=== PATIENT | female | born 1985 | race American Indian/Alaskan Native ===

== ENCOUNTER 2020-06-30 14:20 | Emergency (ER) | payer SELFPAY ==
[2020-06-30] MEDS ORDERED: ONDANSETRON 4 MG/2 ML INJ IV ONE (15:00)
[2020-06-30] MEDS ORDERED: SODIUM CHLORIDE 0.9% 1000 ML 1,000 ML IV ONE (15:00)
--- NOTE | 2020-06-30 15:01 | Event Note ---
ED Screening Note Date of service: 06/30/20 Time: 14:59 ED Screening Note: 35-year-old obese female presents to the emergency room complaining of excruciating right upper quadrant pain for a few days and worsening today. She admits to nausea and vomiting, back pain diarrhea chest pain and some shortness of breath. She also admits to chills hot and cold flashes and sweats. Last menstrual period was 06/25/2020. 3 para 1 no primary care provider. This initial assessment/diagnostic orders/clinical plan/treatment(s) is/are subject to change based on patients health status, clinical progression and re- assessment by fellow clinical providers in the ED. Further treatment and workup at subsequent clinical providers discretion. Patient/guardian urged not to elope from the ED as their condition may be serious if not clinically assessed and managed. Initial orders include:
[2020-06-30 15:18] LABS: Hematocrit 31.1 % (30.3-42.9); Hemoglobin 9.9 gm/dl (10.1-14.3); Mean Corpuscular HGB Conc 32 % (30-34); Platelet Count 558 K/mm3 (140-440); Red Blood Count 4.84 M/mm3 (3.65-5.03)
[2020-06-30 15:38] LABS: Alanine Aminotransferase 46 units/L (7-56); Albumin 4.6 g/dL (3.9-5); Blood Urea Nitrogen 6 mg/dL (7-17); Calcium 8.6 mg/dL (8.4-10.2); Hemolysis Index 4
[2020-06-30 15:42] LABS: BUN/Creatinine Ratio 10
[2020-06-30 15:44] LABS: Mean Corpuscular Volume 64 fl (79-97)
--- NOTE | 2020-06-30 17:13 | Emergency Department Report ---
<TRINY ALLRED - Last Filed: 06/30/20 19:30> ED Abdominal Pain HPI - General Chief Complaint: Abdominal Pain Stated Complaint: ABD PAIN,FLU SX Time Seen by Provider: 06/30/20 17:03 Source: EMS Mode of arrival: Ambulatory Limitations: No Limitations - History of Present Illness Initial Comments: 35-year-old -Citizen Of [place] female presents emergency department complaining of a 4+ day history of progressively worsening right upper quadrant pain that radiates to the back associated with nausea and vomiting and now beginning to develop some diarrhea. She reports having bloating sensation to the abdomen and occasional chills and symptoms appear to be worse with eating. Reports no hematuria noted dysuria no hematochezia. No chest pain or palpitations. No headache or abdominal trauma. She reports no vaginal bleeding no vaginal discharge no dysuria MD Complaint: abdominal pain Severity: mild Quality: dull Consistency: constant Improves With: nothing Worsens With: nothing Associated Symptoms: nausea, vomiting. denies: diarrhea, dysuria, hematemesis, melena, hematuria, anorexia - Related Data Previous Rx's Medication Instructions Recorded Last Taken Type Dicyclomine [Bentyl] 20 mg PO Q6H PRN #30 tablet 07/01/20 Unknown Rx Famotidine [Pepcid] 20 mg PO BID #60 tablet 07/01/20 Unknown Rx Ondansetron [Zofran Odt] 4 mg PO Q6HR PRN #20 tab.rapdis 07/01/20 Unknown Rx traMADoL [Ultram] 50 mg PO Q6HR PRN #12 tablet 07/01/20 Unknown Rx Allergies Allergy/AdvReac Type Severity Reaction Status Date / Time No Known Allergies Allergy Unverified 06/30/20 14:39 ED Review of Systems Comment: All other systems reviewed and negative ED Past Medical Hx - Social History Smoking Status: Never Smoker Substance Use Type: Marijuana - Medications Home Medications: Home Medications Medication Instructions Recorded Confirmed Last Taken Type Dicyclomine [Bentyl] 20 mg PO Q6H PRN #30 tablet 07/01/20 Unknown Rx Famotidine [Pepcid] 20 mg PO BID #60 tablet 07/01/20 Unknown Rx Ondansetron [Zofran Odt] 4 mg PO Q6HR PRN #20 tab.rapdis 07/01/20 Unknown Rx traMADoL [Ultram] 50 mg PO Q6HR PRN #12 tablet 07/01/20 Unknown Rx ED Physical Exam - General Limitations: No Limitations General appearance: alert, in no apparent distress - Head Head exam: Present: atraumatic, normocephalic - Eye Eye exam: Present: normal appearance - ENT ENT exam: Present: mucous membranes moist - Neck Neck exam: Present: normal inspection - Respiratory Respiratory exam: Present: normal lung sounds bilaterally. Absent: respiratory distress - Cardiovascular Cardiovascular Exam: Present: regular rate, normal rhythm. Absent: systolic murmur, diastolic murmur, rubs, gallop - GI/Abdominal GI/Abdominal exam: Present: soft, tenderness (Significant his right upper quadrant positive Fulton sign is noted. There is no distention although the the abdomen is protuberant. Bowel sounds are positive no Manny sign, no Rovsing, no Godinez Geiger), normal bowel sounds, hernia (There is there is appearance of a of a mild ventral hernia which is totally reviewed reducible.). Absent: pulsatile mass - Extremities Exam Extremities exam: Present: normal inspection, normal capillary refill - Back Exam Back exam: Present: normal inspection. Absent: CVA tenderness (R), CVA tenderness (L) - Neurological Exam Neurological exam: Present: alert, oriented X3, CN II-XII intact, normal gait - Psychiatric Psychiatric exam: Present: normal affect, normal mood - Skin Skin exam: Present: warm, dry, intact, normal color. Absent: rash ED Medical Decision Making - Lab Data Result diagrams: 06/30/20 15:04 06/30/20 15:04 Lab Results 06/30/20 06/30/20 06/30/20 Range/Units 15:04 15:04 15:04 WBC 8.1 (4.5-11.0) K/mm3 RBC 4.84 (3.65-5.03) M/mm3 Hgb 9.9 L (10.1-14.3) gm/dl Hct 31.1 (30.3-42.9) % MCV 64 L (79-97) fl MCH 20 L (28-32) pg MCHC 32 (30-34) % RDW 19.0 H (13.2-15.2) % Plt Count 558 H (140-440) K/mm3 Add Manual Diff Complete Total Counted 100 Seg Neuts % (Manual) 75.0 H (40.0-70.0) % Band Neutrophils % 0 % Lymphocytes % (Manual) 18.0 (13.4-35.0) % Reactive Lymphs % (Man) 0 % Monocytes % (Manual) 7.0 (0.0-7.3) % Eosinophils % (Manual) 0 (0.0-4.3) % Basophils % (Manual) 0 (0.0-1.8) % Metamyelocytes % 0 % Myelocytes % 0 % Promyelocytes % 0 % Blast Cells % 0 % Nucleated RBC % Not Reportable Seg Neutrophils # Man 6.1 (1.8-7.7) K/mm3 Band Neutrophils # 0.0 K/mm3 Lymphocytes # (Manual) 1.5 (1.2-5.4) K/mm3 Abs React Lymphs (Man) 0.0 K/mm3 Monocytes # (Manual) 0.6 (0.0-0.8) K/mm3 Eosinophils # (Manual) 0.0 (0.0-0.4) K/mm3 Basophils # (Manual) 0.0 (0.0-0.1) K/mm3 Metamyelocytes # 0.0 K/mm3 Myelocytes # 0.0 K/mm3 Promyelocytes # 0.0 K/mm3 Blast Cells # 0.0 K/mm3 WBC Morphology Not Reportable Hypersegmented Neuts Not Reportable Hyposegmented Neuts Not Reportable Hypogranular Neuts Not Reportable Smudge Cells Not Reportable Toxic Granulation Not Reportable Toxic Vacuolation Not Reportable Dohle Bodies Not Reportable Pelger-Huet Anomaly Not Reportable Omid Rods Not Reportable Platelet Estimate Consistent w auto Clumped Platelets Not Reportable Plt Clumps, EDTA Not Reportable Large Platelets Not Reportable Giant Platelets Not Reportable Platelet Satelliting Not Reportable Plt Morphology Comment Not Reportable RBC Morphology Not Reportable Dimorphic RBCs Not Reportable Polychromasia Not Reportable Hypochromasia 2+ Poikilocytosis Not Reportable Anisocytosis Not Reportable Microcytosis 1+ Macrocytosis Not Reportable Spherocytes Not Reportable Pappenheimer Bodies Not Reportable Sickle Cells Not Reportable Target Cells Rare Tear Drop Cells Not Reportable Ovalocytes Rare Helmet Cells Not Reportable Morrison-Aldrich Bodies Not Reportable [place] Rings Not Reportable Marvel Cells Not Reportable Bite Cells Not Reportable Crenated Cell Not Reportable Elliptocytes Not Reportable Acanthocytes (Spur) Not Reportable Rouleaux Not Reportable Hemoglobin C Crystals Not Reportable Schistocytes Not Reportable Malaria parasites Not Reportable Sergio Bodies Not Reportable Hem Pathologist Commnt No Sodium 138 (137-145) mmol/L Potassium 3.5 L (3.6-5.0) mmol/L Chloride 99.2 (98-107) mmol/L Carbon Dioxide 22 (22-30) mmol/L Anion Gap 20 mmol/L BUN 6 L (7-17) mg/dL Creatinine 0.6 (0.6-1.2) mg/dL Estimated GFR > 60 ml/min BUN/Creatinine Ratio 10 % Glucose 110 H (65-100) mg/dL Calcium 8.6 (8.4-10.2) mg/dL Total Bilirubin 0.50 (0.1-1.2) mg/dL AST 47 H (5-40) units/L ALT 46 (7-56) units/L Alkaline Phosphatase 67 (35-129) units/L Total Protein 7.6 (6.3-8.2) g/dL Albumin 4.6 (3.9-5) g/dL Albumin/Globulin Ratio 1.5 % Lipase 21 (13-60) units/L HCG, Quant (0-4) mIU/mL 06/30/20 Range/Units 15:04 WBC (4.5-11.0) K/mm3 RBC (3.65-5.03) M/mm3 Hgb (10.1-14.3) gm/dl Hct (30.3-42.9) % MCV (79-97) fl MCH (28-32) pg MCHC (30-34) % RDW (13.2-15.2) % Plt Count (140-440) K/mm3 Add Manual Diff Total Counted Seg Neuts % (Manual) (40.0-70.0) % Band Neutrophils % % Lymphocytes % (Manual) (13.4-35.0) % Reactive Lymphs % (Man) % Monocytes % (Manual) (0.0-7.3) % Eosinophils % (Manual) (0.0-4.3) % Basophils % (Manual) (0.0-1.8) % Metamyelocytes % % Myelocytes % % Promyelocytes % % Blast Cells % % Nucleated RBC % Seg Neutrophils # Man (1.8-7.7) K/mm3 Band Neutrophils # K/mm3 Lymphocytes # (Manual) (1.2-5.4) K/mm3 Abs React Lymphs (Man) K/mm3 Monocytes # (Manual) (0.0-0.8) K/mm3 Eosinophils # (Manual) (0.0-0.4) K/mm3 Basophils # (Manual) (0.0-0.1) K/mm3 Metamyelocytes # K/mm3 Myelocytes # K/mm3 Promyelocytes # K/mm3 Blast Cells # K/mm3 WBC Morphology Hypersegmented Neuts Hyposegmented Neuts Hypogranular Neuts Smudge Cells Toxic Granulation Toxic Vacuolation Dohle Bodies Pelger-Huet Anomaly Omid Rods Platelet Estimate Clumped Platelets Plt Clumps, EDTA Large Platelets Giant Platelets Platelet Satelliting Plt Morphology Comment RBC Morphology Dimorphic RBCs Polychromasia Hypochromasia Poikilocytosis Anisocytosis Microcytosis Macrocytosis Spherocytes Pappenheimer Bodies Sickle Cells Target Cells Tear Drop Cells Ovalocytes Helmet Cells Morrison-Aldrich Bodies [place] Rings [facility] Cells Bite Cells Crenated Cell Elliptocytes Acanthocytes (Spur) Rouleaux Hemoglobin C Crystals Schistocytes Malaria parasites Sergio Bodies Hem Pathologist Commnt Sodium (137-145) mmol/L Potassium (3.6-5.0) mmol/L Chloride (98-107) mmol/L Carbon Dioxide (22-30) mmol/L Anion Gap mmol/L BUN (7-17) mg/dL Creatinine (0.6-1.2) mg/dL Estimated GFR ml/min BUN/Creatinine Ratio % Glucose (65-100) mg/dL Calcium (8.4-10.2) mg/dL Total Bilirubin (0.1-1.2) mg/dL AST (5-40) units/L ALT (7-56) units/L Alkaline Phosphatase (35-129) units/L Total Protein (6.3-8.2) g/dL Albumin (3.9-5) g/dL Albumin/Globulin Ratio % Lipase (13-60) units/L HCG, Quant < 2 (0-4) mIU/mL - Medical Decision Making 35-year-old female patient presents emerge department with severe right upper q uadrant pain associated with some nausea with relatively normal labs. She has positive Fulton sign on examination was a suspicion for a gallbladder type etiology. Ultrasound was ordered 2 hours prior to my discharge but is yet to have have been obtained. Patient is being signed out to Tawanda Alegria to review the ultrasound and reevaluate the patient's pain at the was the definitive disposition will be made patient is stable resting comfortably after medications were provided please see his note for the definitive assessment ED Disposition Clinical Impression: Acute abdominal pain in right upper quadrant, Nausea, vomiting and diarrhea, Cholelithiasis without cholecystitis GERD (gastroesophageal reflux disease) Qualifiers: Esophagitis presence: without esophagitis Qualified Code(s): K21.9 - Gastro- esophageal reflux disease without esophagitis Disposition: TO HOME OR SELFCARE Condition: Stable Instructions: Abdominal Pain (ED), Abdominal Pain, Adult, Enho-ds-Ansy, Cholelithiasis, [id number], Nausea and Vomiting, Adult, [id number]-Dgfn, Gastroesophageal Reflux Disease, Adult, [id number] Additional Instructions: All lab test results including urinalysis was unremarkable. Gallbladder ultrasound was unremarkable and showed no acute abnormalities. The abdomen pelvis CT scan with contrast showed gallstones in the gallbladder without any gallbladder wall thickness or sign of infection. Therefore take medications with food, drink plenty of fluids and follow-up with the general surgeon on-call Dr. Spencer for further evaluation. Contact Dr. Spencer's office first thing in the morning on Friday, July 03, 2020 to schedule a follow-up appointment. Return to the ED immediately if symptoms get worse. Follow-up also with your primary care physician in 7 to 10 days for reevaluation. Prescriptions: Dicyclomine [Bentyl] 20 mg PO Q6H PRN #30 tablet PRN Reason: Abdominal pain Famotidine [Pepcid] 20 mg PO BID #60 tablet traMADoL [Ultram] 50 mg PO Q6HR PRN #12 tablet PRN Reason: Pain Ondansetron [Zofran Odt] 4 mg PO Q6HR PRN #20 tab.rapdis PRN Reason: Nausea Referrals: [facility] [Provider Group] - 7-10 days MATTY SPENCER DO [Staff Physician] - 2-3 Days Print Language: HEBREW <TAWANDA HAMILTON - Last Filed: 07/01/20 00:07> ED Review of Systems ROS: Stated complaint: ABD PAIN,FLU SX Other details as noted in HPI ED Course Vital Signs 06/30/20 06/30/20 14:37 20:08 Temperature 97.9 F 98.3 F Pulse Rate 90 68 Respiratory 20 18 Rate Blood Pressure 209/80 126/57 [Left] O2 Sat by Pulse 96 99 Oximetry ED Medical Decision Making - Lab Data Result diagrams: 06/30/20 15:04 06/30/20 15:04 - Radiology Data Radiology results: report reviewed, image reviewed Findings [facility] [address] [place] [address] Ultrasound Report Signed Patient: JHONNY JOYCE MR#: [id number] : 1985 Acct:[id number] Age/Sex: 35 / F ADM Date: 06/30/20 Loc: ED Attending Dr: Ordering Physician: HORACE ALVARADO Date of Service: 06/30/20 Procedure(s): US abdomen limited Accession Number(s): [id number] cc: HORACE ALVARADO US abdomen limited INDICATION: ruq pain COMPARISON: None. FINDINGS: Pancreas: Normal. Abdominal aorta: Normal. IVC: Normal. Liver: Normal. Gallbladder: No significant abnormality. Bile ducts: Normal. The common bile duct measures 1.5 mm. Kidneys: Normal. Spleen: Normal. There is no free fluid in the abdomen. IMPRESSION: No significant sonographic abnormality of the abdomen. Signer Name: Raimundo Juarez MD Signed: 06/30/2020 9:43 PM Workstation Name: [id number] Transcribed By: ANN MARIE Dictated By: Raimundo Juarez MD Electronically Authenticated By: Raimundo Juarez MD Signed Date/Time: 06/30/202142 DD/ 41 TD/TT: Findings [facility] [address] [place] [address] Cat Scan Report Signed Patient: JHONNY JOYCE MR#: [id number] : 1985 Acct:[id number] Age/Sex: 35 / F ADM Date: 06/30/20 Loc: ED Attending Dr: Ordering Physician: HORACE MAHAJAN Date of Service: 06/30/20 Procedure(s): CT abdomen pelvis w con Accession Number(s): [id number] cc: HORACE MAHAJAN CT ABDOMEN AND PELVIS WITH CONTRAST HISTORY: Right-sided abdominal pain. COMPARISON: None TECHNIQUE: Routine abdominal and pelvic CT exam performed following intravenous contrast administration. Patient received 1 mm IV Omnipaque 300. All CT scans at this location are performed using CT dose reduction for ALARA by means of automated exposure control. FINDINGS: CT ABDOMEN: Lung Bases: No significant abnormality. Liver: No significant abnormality. Biliary: There is a gallstone in the gallbladder without wall thickening or fat stranding. Spleen: No significant abnormality. Unenlarged. Pancreas: No significant abnormality. Adrenals: No significant abnormality. Kidneys: No significant abnormality. Lymphatics: No lymphadenopathy. Vasculature: No significant abnormality. Bowel/Peritoneum: No significant abnormality. No free air. No free fluid. Normal appendix. CT PELVIC: : Uterus is enlarged and contains multiple fibroids. Lymphatics: No lymphadenopathy. Osseous Structures: No aggressive appearing osseous lesions. Additional Findings: None IMPRESSION: 1. No acute findings. 2. Cholelithiasis without evidence of acute cholecystitis. 3. Fibroid uterus. Signer Name: Edmundo Flores MD Signed: 06/30/2020 11:24 PM Workstation Name: [id number] Transcribed By: LARY Dictated By: Edmundo Flores MD Electronically Authenticated By: Edmundo Flores MD Signed Date/Time: 06/30/202323 DD/ 22 TD/TT: - Medical Decision Making I assumed care of the patient from Mr. Triny Allred PA-C at shift change at 1930 hrs. the patient had presented to the ED with right upper quadrant abdominal pain with nausea and vomiting and diarrhea. Lab test results were reviewed and are all nonactionable except for mild elevation of AST to 47. Right upper quadrant ultrasound showed no acute abnormalities in the gallbladder but in the liver. On reevaluation, patient's pain is now well controlled medications and the pain is reproducible by palpation of the right upper quadrant with a positive Fulton sign. Abdomen pelvis CT scan with contrast showed cholelithiasis without evidence of acute cholecystitis and fibroid uterus. Patient was then treated with more pain medication, antacids and antiemetics. On reevaluation, patient's pain is well controlled medications. Patient was discharged home on pain medications, antacids and antiemetics and was given a referral to the general surgeon on-call Dr. Spencer for follow-up. Patient was advised to contact Dr. Spencer's office first thing in the morning on Friday, July 03, 2020 to schedule a follow-up appointment. Patient was advised return to the ED immediately if her symptoms get worse, otherwise follow-up with her primary care physician in 7 to 10 days for reevaluation. - Differential Diagnosis Gallstones; GERD; Cholecystitis; UTI; Pancreatitis; Appendicitis; renal sto Critical care attestation.: If time is entered above; I have spent that time in minutes in the direct care of this critically ill patient, excluding procedure time. ED Disposition Is pt being admited?: No Does the pt Need Aspirin: No Time of Disposition: 00:07
[2020-06-30] MEDS ORDERED: ONDANSETRON 4 MG/2 ML INJ IV STA (17:14)
[2020-06-30] MEDS ORDERED: MORPHINE 4 MG/1 ML INJ IV STA (17:14)
[2020-06-30] MEDS ORDERED: SODIUM CHLORIDE 0.9% IRR 500 ML BOTTLE IR STA (17:14)
[2020-06-30 18:56] LABS: Basophils % (Manual) 0 % (0.0-1.8); Eosinophils % (Manual) 0 % (0.0-4.3); Hypochromasia 2+; Total Cells Counted 100
[2020-06-30 18:57] LABS: Ovalocytes Rare; Target Cells Rare
[2020-06-30 18:58] LABS: Platelet Estimate Consistent w Auto
[2020-06-30 20:24] LABS: Bilirubin,Urine NEG (Negative); Blood,Urine NEG (Negative); Color,Urine Yellow (Yellow); Mucus,Urine 3+ /HPF; Urobilinogen,Urine < 2.0 mg/dL (<2.0)
--- NOTE | 2020-06-30 21:47 | Ultrasound Report ---
US abdomen limited INDICATION: ruq pain COMPARISON: None. FINDINGS: Pancreas: Normal. Abdominal aorta: Normal. IVC: Normal. Liver: Normal. Gallbladder: No significant abnormality. Bile ducts: Normal. The common bile duct measures 1.5 mm. Kidneys: Normal. Spleen: Normal. There is no free fluid in the abdomen. IMPRESSION: No significant sonographic abnormality of the abdomen. Signer Name: Raimundo Juarez MD Signed: 06/30/2020 9:43 PM Workstation Name: [id number]
[2020-06-30] MEDS ORDERED: FAMOTIDINE 20 MG/2 ML INJ IV ONE (22:32)
[2020-06-30] MEDS ORDERED: KETOROLAC 30 MG/1 ML INJ IV ONE (22:33)
--- NOTE | 2020-06-30 23:29 | Cat Scan Report ---
CT ABDOMEN AND PELVIS WITH CONTRAST HISTORY: Right-sided abdominal pain. COMPARISON: None TECHNIQUE: Routine abdominal and pelvic CT exam performed following intravenous contrast administrat ion. Patient received 1 mm IV Omnipaque 300. All CT scans at this location are performed using CT dos e reduction for ALARA by means of automated exposure control. FINDINGS: CT ABDOMEN: Lung Bases: No significant abnormality. Liver: No significant abnormality. Biliary: There is a gallstone in the gallbladder without wall thickening or fat stranding. Spleen: No significant abnormality. Unenlarged. Pancreas: No significant abnormality. Adrenals: No significant abnormality. Kidneys: No significant abnormality. Lymphatics: No lymphadenopathy. Vasculature: No significant abnormality. Bowel/Peritoneum: No significant abnormality. No free air. No free fluid. Normal appendix. CT PELVIC: : Uterus is enlarged and contains multiple fibroids. Lymphatics: No lymphadenopathy. Osseous Structures: No aggressive appearing osseous lesions. Additional Findings: None IMPRESSION: 1. No acute findings. 2. Cholelithiasis without evidence of acute cholecystitis. 3. Fibroid uterus. Signer Name: Edmundo Flores MD Signed: 06/30/2020 11:24 PM Workstation Name: [id number]
[2020-07-01 00:28] VITALS: BP 124/60
== END 2020-07-01 00:28 | disposition home or self-care (01) ==
LOC: ED 14:20
DX: K21.9 Gastro-esophageal reflux disease without esophagitis (principal); K80.80 Other cholelithiasis without obstruction; F12.10 Cannabis abuse, uncomplicated
CPT/HCPCS: 36415; 74177; 76705; 80053; 81001; 83690; 84702; 85007; 85025; 96361; 96374; 96375; 99284; J1885; J2270; J2405; J7030; Q9967